=== PATIENT | female | born 1965 | race Caucasian/White ===

== ENCOUNTER 2022-09-13 10:34 | Emergency (ER) | payer OTHER ==
[2022-09-13] MEDS ORDERED: Sodium Chloride 0.9% 10 ML Syringe FLUSH PRN (11:24)
[2022-09-13] MEDS ORDERED: Sodium Chloride 0.9% 1,000 ML IV ONE ×2 (11:26→13:05)
[2022-09-13 11:34] LABS: BASOPHILS ABSOLUTE AUTO 0.03 K/mm3 (0.01-0.08); BASOPHILS PERCENT AUTO 0.3 % (0.1-1.2); EOSINOPHILS ABSOLUTE AUTO 0.07 K/mm3 (0.04-0.36); EOSINOPHILS PERCENT AUTO 0.7 (0.7-5.8); HEMATOCRIT 41.5 % (34.1-44.9); HEMOGLOBIN 13.8 gm/dl (11.2-15.7); IMMATURE GRAN ABSOLUTE AUTO 0.01 K/mm3 (0.00-0.10); IMMATURE GRAN PERCENT AUTO 0.1 % (<=1.0); LYMPHOCYTES ABSOLUTE AUTO 1.84 K/mm3 (1.18-3.74); LYMPHOCYTES PERCENT AUTO 18.1 % (19.3-51.7); MEAN CORPUSCULAR HEMOGLOBIN 29.4 pg (25.6-32.2); MEAN CORPUSCULAR HGB CONC 33.3 g/dl (32.2-35.5); MEAN CORPUSCULAR VOLUME 88.3 fl (79.4-94.8); MEAN PLATELET VOLUME 9.5 fl (9.4-12.3); MONOCYTES ABSOLUTE AUTO 0.44 K/mm3 (0.24-0.36); MONOCYTES PERCENT AUTO 4.3 % (4.7-12.5); NEUTROPHILS ABSOLUTE AUTO 7.75 K/mm3 (1.56-6.13); NEUTROPHILS PERCENT AUTO 76.5 % (34.0-71.1); PLATELET COUNT,PLT 352 K/mm3 (182-369); WHITE BLOOD CELL COUNT,WBC 10.14 K/mm3 (3.98-10.04)
[2022-09-13 11:42] LABS: A/G RATIO 0.8 (1-2); ALANINE AMINOTRANSFERASE,ALT 28 U/L (14-59); ALBUMIN 3.8 g/dl (3.4-5.0); ALKALINE PHOSPHATASE 121 U/L (46-116); ANION GAP 12.1 (5-15); ASPARTATE AMNIOTRANSFERASE,AST 17 U/L (15-37); BILIRUBIN TOTAL 0.3 mg/dL (0.2-1.0); BLOOD UREA NITROGEN,BUN 17 mg/dL (7-18); BUN/CREATININE RATIO 21.3 (14-18); C-REACTIVE PROTEIN <0.2 mg/dL (<1.0); CALCIUM 9.4 mg/dL (8.5-10.1); CARBON DIOXIDE,CO2 27 mEq/L (21-32); CHLORIDE,CL 104 mEq/L (98-107); CREATININE 0.8 mg/dL (0.55-1.02); EST CRCL DRUG DOSING (CG) 61.36 mL/min; ESTIMATED GFR 86 mL/min (>60); GLUCOSE RANDOM 113 mg/dL (70-99); MAGNESIUM 1.8 mg/dL (1.8-2.4); POTASSIUM,K 4.1 mEq/L (3.5-5.1); PROTEIN TOTAL,TP 8.4 g/dl (6.4-8.2); SODIUM,NA 139 mEq/L (136-145)
[2022-09-13] MEDS ORDERED: Ketorolac 30 MG/ML SDV IVPUSH ONE (12:11)
[2022-09-13] MEDS ORDERED: Ondansetron 4 MG/2 ML SDV IVPUSH ONE (12:11)
[2022-09-13 12:32] LABS: APPEARANCE,URINE CLOUDY (Clear); BILIRUBIN,URINE 1+ (Negative); COLOR,URINE DARK YELLOW (Yellow); GLUCOSE,URINE NEGATIVE (Negative); KETONES,URINE NEGATIVE (Negative); LEUKOCYTE ESTERASE,URINE NEGATIVE (Negative); NITRITE,URINE NEGATIVE (Negative); OCCULT BLOOD,URINE 3+ (Negative); PROTEIN,URINE 2+ (Negative); UROBILINOGEN,URINE 0.2 (0.2-1.0)
[2022-09-13] MEDS ORDERED: Tamsulosin 0.4 MG Cap.ER PO ONE (12:57)
[2022-09-13 12:59] LABS: BACTERIA,URINE MODERATE /hpf (FEW); MUCUS,URINE FEW /hpf (FEW); RBC,URINE >100 /hpf (0-5); WBC,URINE 0-5 /hpf (0-5)
== END 2022-09-13 15:00 | disposition home or self-care (01) ==
LOC: JD.ED 10:34
DX: N20.0 Calculus of kidney (principal); E78.00 Pure hypercholesterolemia, unspecified; I10 Essential (primary) hypertension; Z79.899 Other long term (current) drug therapy
CPT/HCPCS: 36415; 74176; 80053; 81001; 83735; 85025; 86140; 96374; 96375; 99284; A9270; J1885; J2405; J3490; J7030